=== PATIENT | female | born 1950 | race Caucasian/White ===

== ENCOUNTER 2018-08-28 09:49 | Observation (INO) | payer MEDICARE, OTHER ==
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
[2018-08-28 10:33] LABS: PLATELET COUNT 187 10^3/uL (150-400)
--- NOTE | 2018-08-28 12:17 | CPEKG ---
Test Reason : OPEN Blood Pressure : / mmHG Vent. Rate : 057 BPM Atrial Rate : 057 BPM P-R Int : 188 ms QRS Dur : 093 ms QT Int : 428 ms P-R-T Axes : 023 -06 002 degrees QTc Int : 417 ms Sinus rhythm Inferior infarct, old Confirmed by Anthony Edmond ([id number]) on 08/28/2018 12:17:06 PM Referred By: Anthony Edmond Confirmed By:Anthony Edmond
[2018-08-28] MEDS ORDERED: ACETAMINOPHEN 325 MG TAB PO PRN (13:43)
[2018-08-28] MEDS ORDERED: ONDANSETRON 4 MG/2 ML VIAL IVP PRN (13:43)
[2018-08-28] MEDS ORDERED: ONDANSETRON DISINTEGRATING 4 MG TAB PO PRN (13:43)
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
--- NOTE | 2018-08-28 17:21 | CPEKG ---
Test Reason : OPEN Blood Pressure : / mmHG Vent. Rate : 046 BPM Atrial Rate : 046 BPM P-R Int : 193 ms QRS Dur : 095 ms QT Int : 459 ms P-R-T Axes : 043 018 021 degrees QTc Int : 402 ms Sinus bradycardia Low voltage, precordial leads Non-specific ST depression < 1mm lateral leads. Confirmed by Jignesh Sr ([id number]) on 08/28/2018 5:21:20 PM Referred By: Ramon Hart Confirmed By:Jignesh Sr
[2018-08-28] MEDS ORDERED: IBUPROFEN 200 MG TAB PO PRN (17:52)
[2018-08-28] MEDS ORDERED: DOXYLAMINE SUCCINATE 12.5 MG PO SCH (21:00)
[2018-08-29] MEDS: ENOXAPARIN 40 MG/0.4 ML SYR SC SCH ×2 (08:03→08:08)
--- NOTE | 2018-08-29 11:54 | ECHO ---
[email or web address] [address] [address] Main: [phone] Echocardiography Examination Transthoracic Name: KWADWO BRICE MR#: [id number] Study Date: 08/28/2018 Study Time: 03:07 PM Date of : 1950 Age: 68 year(s) Height: 162.6 cm (64 in.) Weight: 68.04 kg (150 lb.) BSA: 1.73 m2 Gender: Female Examination: Echo Contrast: Image Quality: Adequate Rhythm: Heart Rate: BP: / Indication: evaluate for VHD Procedure Staff Referring Physician: Regulatory Agency Director: Manasa Kelly [facility] Reading Physician: Ryan Beauchamp MD Requesting Provider: Indication: evaluate for VHD Measurements Chambers AV/MV Label Value Normal Value Label Value Normal Value LVOT Vmax 0.99 m/s (0.7m/s - 1.1m/s) AV PGmax 9 mmHg LVOTd 1.8 cm (1.8cm - 2cm) AV Vmax 1.47 m/s LVOT PGmax 4 mmHg SHIV (Vmax) 1.7 cm2 LVDd, 2D 3.7 cm (3.9cm - 5.3cm) MV E Vmax 0.9 m/s LVDs, 2D 2.4 cm (2.1cm - 4cm) MV A Vmax 0.76 m/s IVSd, 2D 1.4 cm (0.6cm - 1.1cm) MV E/A 1.18 LVPWd, 2D 0.7 cm MV E/E' lateral 10.6 LVEF, BP 66 % (55% - 70%) MV E/E' septal 12 (0.45 - 1.25) LVEF, 2D 64 % (54% - 74%) MV DT 246 ms RVDd, 2D 2.5 cm (1.9cm - 3.8cm) MV E' septal 0.08 m/s TAPSE 2.2 cm MV E' lateral 0.08 m/s LA Volume, BP 39 ml (22ml - 52ml) MV E/E' mean 11.25 LADs, 2D 3.4 cm (2.7cm - 3.8cm) MV E' mean 0.08 m/s LAESV index, BP 22.5 ml/m2 TV/PV Additional Vessels Label Value Normal Value Label Value Normal Value RA Pressure 10 mmHg AoAsc 2.7 cm RVSP 28 mmHg AoRoot, 2D 2.8 cm (1.4cm - 2.6cm) TR Pmax 18 mmHg TR Vmax 2.1 m/s PV PGmax 2 mmHg Patient: KWADWO BRICE Study Date: 08/28/2018 Page 1 of 3 03:07 PM PV Vmax, Caliper 0.68 m/s (0.6m/s - 0.9m/s) Conclusions Left Ventricle: Normal global systolic left ventricular function. EF range is estimated at 60 % - 65 %. Left ventricular diastolic function parameters are normal. Right Ventricle: Right ventricular systolic function is normal. Tricuspid Valve: Mild tricuspid regurgitation. Pericardium: No pericardial effusion. Findings Left Ventricle: Left ventricle is normal in size. Normal global systolic left ventricular function. EF evaluated by EF (biplane Asher's). The ejection fraction, measured by Simpsons method, is 66 %. EF range is estimated at 60 % - 65 %. Left ventricle wall thickness is normal. There are no regional wall motion abnormalities. Left ventricular diastolic function parameters are normal. Right Ventricle: Normal size right ventricle. Right ventricular wall thickness is normal. Right ventricular systolic function is normal. Left Atrium: The left atrium is normal in size. IAS: Normal appearing atrial septum. Right Atrium: The right atrium is normal in size. Mitral Valve: Normal . Trivial mitral regurgitation. No mitral valve stenosis. Aortic Valve: Aortic leaflets exhibit normal cuspal separation. No aortic valve regurgitation. There is no aortic stenosis. Tricuspid Valve: Tricuspid valve leaflets are normal in appearance and function. Mild tricuspid regurgitation. No tricuspid valve stenosis. Right Ventricular systolic pressure is measured at 28 mmHg. Pulmonary artery pressure normal. Pulmonic Valve: Pulmonic leaflets exhibit normal cuspal separation. No pulmonic valve regurgitation is evident. There is no pulmonic valve stenosis. Aorta: The aorta is normal. The aortic root size in 2D measures 2.8 cm. The ascending aorta measures 2.7 cm. Aorta Measurements AoRoot, 2D is 2.8 cm. IVC: The inferior vena cava is dilated. The respirophasic change in diameter is more than 50%. Pericardium: No pericardial effusion. Exam Details Procedure Ordered: Echo Patient: KWADWO BRICE Study Date: 08/28/2018 Page 2 of 3 03:07 PM Procedure Status: Routine study Image Quality: Adequate Facility Location: Cardiac Echo 1 (No Signature Object) Patient: KWADWO BRICE Study Date: 08/28/2018 Page 3 of 3 03:07 PM [id number]
[2018-08-29 12:28] VITALS: BP 136/71
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
--- NOTE | 2018-08-29 16:59 | ASMTLACE ---
IGGY Length of stay for Answers: 1 day current admission Acuity / Level of Answers: No Care: Did the patient have an inpatient admission? # of Emergency department Answers: 1-2 visits in the last 6 months Score: 2 Date Signed: 08/29/2018 04:58 PM Electronically Signed By:Krista Francisco RN
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
== END 2018-08-29 13:50 | disposition home or self-care (01) ==
LOC: F2W 14:00
PROVIDERS: ADMIT Internal Medicine; ATTEND Internal Medicine
DX: R55 Syncope and collapse (principal); S00.31XA Abrasion of nose, initial encounter; V47.0XXA Car driver injured in collision with fixed or stationary object in nontraffic accident, initial encounter; Y92.410 Unspecified street and highway as the place of occurrence of the external cause
CPT/HCPCS: 70551; 92523; 93005; 93306; 99285; G0378; 84484-ER; J1650